=== PATIENT | female | born 2000 | race Caucasian/White ===

== ENCOUNTER 2020-08-28 16:55 | Emergency (ER) | payer OTHER ==
[~2020-08-28] VITALS: Ht 162 cm; Wt 51.0 kg
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
[2020-08-28] MEDS ORDERED: KETOROLAC 60 MG/2 ML VIAL IM ONE (17:15)
[2020-08-28] MEDS ORDERED: ORPHENADRINE 60 MG/2 ML (NORFLEX) AMP (ED ONLY) IM ONE (17:15)
[2020-08-28] MEDS ORDERED: NAPR-1070 PO (17:24)
[2020-08-28] MEDS ORDERED: METH-313 PO (17:24)
[2020-08-28] MEDS ORDERED: RX-TRAMADOL 50 MG (ULTRAM) TAB PPK#4 PO STA (17:45)
--- NOTE | 2020-08-28 17:48 | Diagnostic Imaging Report ---
Indication: Right shoulder pain AP, oblique and transscapular views of the right shoulder are obtained. FINDINGS: No acute fracture or dislocation is identified. No abnormal lytic or sclerotic focus is seen, and there is no radiopaque foreign body. IMPRESSION: No acute abnormality. Dictated by: Dictated on workstation # [id number]
[2020-08-28 17:55] VITALS: BP 111/74
== END 2020-08-28 17:56 | disposition home or self-care (01) ==
LOC: EDUNIT# 16:55 → ER 16:58
DX: S46.911A Strain of unspecified muscle, fascia and tendon at shoulder and upper arm level, right arm, initial encounter (principal); V89.2XXA Person injured in unspecified motor-vehicle accident, traffic, initial encounter
CPT/HCPCS: 73030